=== PATIENT | female | born 1935 | race Caucasian/White ===

== ENCOUNTER 2019-07-26 11:28 | Observation (INO) | payer MEDICARE, OTHER ==
[~2019-07-26] VITALS: Ht 160 cm; Wt 54.0 kg
[~2019-07-26 11:28] MED LIST: ALAWAY10 ML OPTH; ALENDRONATE SOD70 MG PO; ARICEPT10 MG PO; ASPIR-LOW81 MG PO; CARVEDILOL12.5 MG PO; COMBIGAN EYE DRO5 ML OD; COMBIGAN EYE DRO5 ML OU; COREG6.25 MG PO; DOXYCYCLINE HY100 M3 PO; EFFEXOR XR150 MG PO; HYDROCHLOROTH12.5 MG PO; HYDROCHLOROTHIA25 MG PO; HYDROCODON-ACE1 EA10 PO; HYDROCORTISO28.35 GM TOP; KETOTIFEN FUMARA5 ML OS; LEVAQUIN750 MG PO; LIPITOR10 MG PO; LISINOPRIL20 MG PO; LISINOPRIL30 MG PO; METOPROLOL TART25 MG PO; MILK OF MA400 MG/5 M PO; MIRALAX17 GM PO; MOTRIN IB200 MG PO; MOTRIN400 MG PO; NAMENDA10 MG PO; OCUVITE LUTEIN1 EACH PO; OCUVITE TABLET1 EAC1 PO; OLANZAPINE2.5 MG PO; TRAMADOL HCL50 MG PO; TYLENOL EXTRA500 MG PO; VITAMIN D31000 UNI1 PO; XALATAN2.5 ML OP
[2019-07-26] MEDS ORDERED: NITROFURANTOIN100 M1 PO (12:25)
--- NOTE | 2019-07-26 15:56 | NUR ---
PT ARRIVED TO FLOOR VIA STRETCHER. PT IS NOT ORIENTED BUT IS ALERT AND FOLLOWS VOICES. PT IS BED BOUND. 4 P TRANSFER SLIDE TO BED. DAUGHTER AT BEDISDIE AND ANSWERING QUESTIONS ABOUT PT. PT ABLE TO FOLLOW SIMPLE COMANDS LIJE "SQUEZZE MY HAND". UNABLETO WIGGLE TOES. BEDSIDE SWALLOW EVALUATION DONE. PT HOLDS WATER IN MOUTH FOR 15 SECONDS BEFORE SWALLOWING. NO COUGHING OR ASPERATION NOTED. MEDICATION ADMINISTERED, LR AT 75 STARTED. VITALS COMPLETED AND STABLE. VISIBLE FROM NURSING STATION.
--- NOTE | 2019-07-26 17:55 | NUR ---
PATIENT RESTING IN BED. RN AND FAMILY IN ROOM. VITAL SIGNS AND I&O DONE BY RN. ATTEND CHANGED. PATIENT REPOSITIONED ON HER RIGHT SIDE. TWO PERSON ASSISTING. CALL LIGHT WITHIN REACH. NO OTHER NEEDS AT THIS TIME
--- NOTE | 2019-07-26 17:56 | NUR ---
PT ATTENDS CHANGED, SUPPOSITORY GIVEN, PT REPOSITIONED. TOLERTED WELL, APPEARS COMFORTABLE. WATER AND ENSURE PROVIDED.
--- NOTE | 2019-07-26 20:10 | NUR ---
REPORT RECEIVED, PT RESTING IN BED, NO SIGNS OF DISCOMFORT OR DISTRESS, BREATHS EVEN, UNLABORED, NO NEEDS AT THIS TIME, CALL LIGHT WITHIN REACH. FALL PRECAUTIONS IN PLACE.
--- NOTE | 2019-07-26 20:50 | NUR ---
patients vs were complete. output still needs to be recorded.
--- NOTE | 2019-07-26 21:30 | NUR ---
PT RESTING IN BED, EVENING MEDS ADMINISTERED, PT RESPONSIVE, ORIENTED TO PERSON, CONFUSED TO PLACE, TIME, PT SLOW TO RESPOND BUT WILL RESPOND WITH ONE WORD OCCASIONALLY, PT TOLERATED EVENING PO MEDS IN PUDDING, ASPIRATION PRECAUTIONS USED, HOB ELEVATED TO HIGH FOWLERS, PT NOTED TO BE INCONTINENT OF URINE, PT ALSO WAS INCONTINENT OF URINE WHILE CHANGING ATTENDS, NEW ATTENDS PLACED, PT REPOSITIONED IN BED FOR COMFORT, PT REMAINS IN BED, VSS, CALL LIGHT WITHIN REACH. FALL PRECAUTIONS IN PLACE.
--- NOTE | 2019-07-26 23:45 | NUR ---
PT RESTING IN BED, EYES CLOSED, BREATHS EVEN, UNLABORED, NO NEEDS AT THIS TIME, IV FLUIDS INFUSING PER EMAR WNL. NO SIGNS OF DISTRESS OR DISCOMFORT. CALL LIGHT WITHIN REACH.
--- NOTE | 2019-07-27 01:46 | NUR ---
PT RESTING IN BED, VSS, PT RESPONSIVE, REMAINS ALERT TO SELF ONLY, SLOW TO RESPOND, PT NOTED TO BE INCONTINENT OF BM WELL VOID, MEDIUM SIZED FORMED BM, ATTENDS CHANGED, BEDDING CHANGED, NO SIGNS OF DISCOMFORT OR DISTRESS, PT RESTING QUIETLY IN BED, CALL LIGHT WITHIN REACH. FALL PRECAUTIONS IN PLACE. PT VISIBLE FROM NURSES STATION.
--- NOTE | 2019-07-27 05:02 | NUR ---
PT RESPONSIVE, ORIENTED ONLY TO PERSON, PT BEDBOUND, TURN Q2, IV FLUIDS INFUSING PER EMAR WNL, PT INCONTINENT OF STOOL AND URINE THIS SHIFT. PT'S VSS, PT SLOW TO RESPOND WITH MINIMAL VERBAL RESPONSE, ASPIRATION PRECAUTIONS UTLIZED, PT ON RA, NO SIGNS OF DISCOMFORT OR DISTRESS. NO C/O PAIN. HEEL PROTECTORS ON
--- NOTE | 2019-07-27 06:30 | NUR ---
PT RESTING IN BED, VSS, NOTED TO BE INCONTINENT, ATTENDS CHANGED, REPOSITIONED IN BED, NO SIGNS OF DISCOMFORT OR DISTRESS, IV FLUIDS INFUSING PER EMAR WNL. LAB TO ROOM. FALL PRECAUTIONS IN PLACE. PT VISIBLE FROM NURSES STATION.
--- NOTE | 2019-07-27 08:39 | NUR ---
PATIENT REPOSITIONED TO FEED BREAKFST, PATIENT HAD DOMINIQUE AND EGGS, HARD FOR HER TO CHEW, THIS ENERGY CONSERVATION ENGINEER ORDERED HER CREAM OF WHEAT AND YOGURT WILL RETRY WHEN DELIVERED
--- NOTE | 2019-07-27 08:43 | NUR ---
PTS INITIAL CASE MANAGEMENT ASSESSMENT COMPLETE. PT LIVES AT [facility] AND IS WHEEL CHAIR BOUND AT BASELINE. PTS FAMILY REPORT THAT SHE IS COMFORT MEASURES ONLY ON HER POLST, BUT WOULD LIKE HER TO CONTINUE WITH TREATMENT WITH IV ANTIBIOTICS.
--- NOTE | 2019-07-27 10:17 | NUR ---
PT AWAKE, EYES OPEN, NOVERBAL, MAKES EYE CONTACT TO VERBAL STIMULI AND SMILED AT ME. FAMILY AT BEDSIDE. LR RUNNING AT 50ML/HR. PT TOLERATED PILLS WITH PUDDING THIS AM. PT'S DEPENDS DRY AT THIS TIME. PT APPEARS COMFORTABLE. PT IS ON RA, RESP EVEN AND NON LABORED. PERSONAL SUPPLIES AND CALL LIGHT WITHIN REACH. CLOSE TO RN STATION.
[2019-07-27] MEDS ORDERED: CLARITIN10 MG PO (10:38)
[2019-07-27] MEDS ORDERED: [UNRECOGNIZED DRUG - SUPPLY] TOP ×2 (11:11→11:47)
[2019-07-27] MEDS ORDERED: MACROBID 100 M100 MG PO (11:17)
[2019-07-27] MEDS ORDERED: ALLERGY EYE DRO10 M1 OS (11:23)
--- NOTE | 2019-07-27 11:50 | NUR ---
MED REC COMPLETE
--- NOTE | 2019-07-27 19:32 | NUR ---
REPORT RECEIVED, PT RESTING IN BED, IV FLUIDS INFUSING PER EMAR WNL, NO NEEDS AT THIS TIME, NO SIGNS OF DISCOMFORT OR RESTLESNESS. PT VISIBLE FROM NURSES STATION. CALL LIGHT WITHIN REACH. FALL PRECAUTIONS IN PLACE.
--- NOTE | 2019-07-27 20:20 | NUR ---
PT RESTING IN BED, PT RESPONSIVE TO VOICE ALTHOUGH HAS NOT VERBALIZED ANY RESPONSES TO THIS RN, UNABLE TO ASSESS ORIENTATION, NO SIGNS OF DISCOMFORT OR RESTLESNESS, IV FLUIDS INFUSING PER EMAR WNL. PT NOT GIVEN SCHEDULED SENNA DUE TO PT'S MULTIPLE BM'S TODAY, DISCUSSED WITH DAY SHIFT RN, PT FLOATED TO ONE SIDE, HEEL PROTECTORS ON. VISIBLE FROM NURSES STATION. CALL LIGHT WITHIN REACH. FALL PRECAUTIONS IN PLACE.
--- NOTE | 2019-07-27 22:27 | NUR ---
PT'S ATTENDS CHANGED, PT NOTED TO BE INCONTINENT OF SMALL AMOUNT OF URINE WELL SMALL SMEAR OF STOOL. PT REMAINS RESTING IN BED, REPOSITIONED IN BED, NO SIGNS OF DISCOMFORT OR RESTLESNESS, VSS, PT VISIBLE FROM NURSES STATION. CALL LIGHT WITHIN REACH.
--- NOTE | 2019-07-28 00:30 | NUR ---
PT RESTING IN BED, EYES CLOSED, BREATHS EVEN, UNLABORED, NO NEEDS AT THIS TIME, NEW IV FLUIDS HANGING, PT VISIBLE FROM NURSES STATION.
--- NOTE | 2019-07-28 01:00 | NUR ---
PT RESTING IN BED, EYES CLOSED, BREATHS EVEN, UNLABORED, NO NEEDS AT THIS TIME, CALL LIGHT WITHIN REACH. PT VISIBLE FROM NURSES STATION.
--- NOTE | 2019-07-28 03:52 | NUR ---
PT INCONTINENT OF URINE, ATTENDS CHANGED WITH DINA ALEXANDRA, PT TOLERATED WELL. PT REMAINS NONVERBAL, NO SIGNS OF DISTRESS OR DISCOMFORT, IV FLUIDS INFUSING PER EMAR. REPOSITIONED FOR COMFORT, CALL LIGHT WITHIN REACH. FALL PRECAUTIONS IN PLACE. PT VISIBLE FROM NURSES STATION.
--- NOTE | 2019-07-28 06:01 | NUR ---
PT RESTED WELL THIS SHIFT, REMAINS MOSTLY NONVERBAL, TURN Q2, NO SIGNS OF ACUTE DISTRESS OR DISCOMFORT, VSS, ON RA, PT IS INCONTINENT, ATTENDS CHANGED PRN, HEEL PROTECTORS ON, IV FLUIDS INFUSED PER EMAR WNL. VISIBLE FROM NURSES STATION.
== END 2019-07-28 11:00 ==
LOC: ED 11:28 → MS 11:30
PROVIDERS: ADMIT Student in an Organized Health Care Education/Training Program
DX: N39.0 Urinary tract infection, site not specified (principal); G93.41 Metabolic encephalopathy; E86.0 Dehydration; E87.6 Hypokalemia; E87.0 Hyperosmolality and hypernatremia; H40.9 Unspecified glaucoma; F03.90 Unspecified dementia, unspecified severity, without behavioral disturbance, psychotic disturbance, mood disturbance, and anxiety; F32.9 Major depressive disorder, single episode, unspecified; E78.5 Hyperlipidemia, unspecified; I10 Essential (primary) hypertension; M81.0 Age-related osteoporosis without current pathological fracture; Z66 Do not resuscitate; Z79.82 Long term (current) use of aspirin; Z79.899 Other long term (current) drug therapy
CPT/HCPCS: 36415; 71045; 80048; 80053; 81001; 83735; 84484; 85025; 87077; 87088; 87186; 96361; 96365; 96366; 96372; 96375; 96376; 99285-25; G0378; J1335; J1650; J3480; J7040; J7070; J7120